=== PATIENT | female | born 1975 | race Caucasian/White ===

== ENCOUNTER 2018-04-16 09:49 | Emergency (ER) | payer BC ==
[2018-04-16 09:59] VITALS: TEMP 98.6; BMI 24.3
[2018-04-16] MEDS ORDERED: ONDANSETRON 4 MG/2 ML VIAL IVPUSH ONE (10:04)
[2018-04-16] MEDS ORDERED: SODIUM CHLORIDE 0.9% 1000 ML INFUS.BAG IV ONE ×2 (10:04→10:51)
[2018-04-16] MEDS ORDERED: ACETAMINOPHEN 1000 MG/100 ML VIAL (NON FORMULARY) IVPB ONE ×2 (10:04→10:51)
[2018-04-16] MEDS ORDERED: ONDANSETRON 4 MG/2 ML VIAL ONE (10:21)
[2018-04-16] MEDS ORDERED: ACETAMINOPHEN INJECTION 100 ML IVPB ONE (10:21)
[2018-04-16] MEDS ORDERED: AZITHROMYCIN 500 MG TABLET PO ONE (10:38)
[2018-04-16 10:41] LABS: BASO % 0.4 % (0-2.0); EOS % 1.1 % (0-4.5); HEMATOCRIT 39.5 % (32.4-45.2); HEMOGLOBIN 13.4 GM/dl (10.7-15.3); LYMPH % 17.5 % (8-40); MCH 31.2 pg (25.7-33.7); MCHC 34.1 g/dl (32.0-36.0); MEAN CELL VOLUME 91.6 fl (80-96); MEAN PLT VOLUME 8.1 fl (7.5-11.1); MONO % 10.7 % (3.8-10.2); NEUT % 70.3 % (42.8-82.8); PLATELET COUNT 215 K/MM3 (134-434); RBC 4.31 M/mm3 (3.60-5.2); RDW 11.9 % (11.6-15.6); WHITE BLOOD COUNT 6.3 K/mm3 (4.0-10.8)
[2018-04-16] MEDS ORDERED: AZITHROMYCIN 250 MG TABLET ONE (10:44)
[2018-04-16 10:46] LABS: ALBUMIN 3.8 g/dl (3.4-5.0); ALK PHOS 52 U/L (45-117); ANION GAP 5 MMOL/L (8-16); BILIRUBIN,TOTAL 0.5 mg/dl (0.2-1); BLOOD UREA NITROGEN 9 mg/dl (7-18); CALCIUM 8.7 mg/dl (8.5-10); CHLORIDE 106 mmol/L (98-107); CO2 26 mmol/L (21-32); CREATININE 0.7 mg/dl (0.55-1.3); GLUCOSE,RANDOM 102 mg/dl (74-106); POTASSIUM 3.7 mmol/L (3.5-5.1); SGOT/AST 20 U/L (15-37); SGPT/ALT 16 U/L (13-61); SODIUM 137 mmol/L (136-145); TOT PROT 6.9 g/dl (6.4-8.2)
--- NOTE | 2018-04-16 10:59 | PDOC ---
History of Present Illness - General Chief Complaint: Diarrhea Stated Complaint: DIARRHEASINCE RETURNING FROM [place] Time Seen by Provider: 04/16/18 10:04 - History of Present Illness Initial Comments: 04/16/18 10:53 42 years old no significant past medical history presents to the emergency department with three-day history of diarrhea. Patient and her recently travel to [place] they're both suffering from diarrheal illness with crampy abdominal pain nausea profuse watery diarrhea no blood no fever. Symptoms are moderate persistent constant with no exacerbating or alleviating factors. Past History - Past Medical History Allergies/Adverse Reactions: Allergies Allergy/AdvReac Type Severity Reaction Status Date / Time No Known Allergies Allergy Unverified 04/16/18 09:51 Home Medications: Ambulatory Orders Ondansetron [Zofran Odt -] 4 mg SL BID #14 od.tablet 04/16/18 COPD: No - Suicide/Smoking/Psychosocial Hx Smoking History: Never smoked Hx Alcohol Use: No Drug/Substance Use Hx: No Review of Systems - Review of Systems Comments:: 04/16/18 10:54 ROS: A complete review of 10 out of 10 review of systems is taken and is negative apart from what is previously mentioned below and in the HPI. *Physical Exam - Vital Signs Last Vital Signs Temp Pulse Resp BP Pulse Ox 98.6 F 88 16 109/78 99 04/16/18 09:51 04/16/18 09:51 04/16/18 09:51 04/16/18 09:51 04/16/18 09:51 - Physical Exam Comments: 04/16/18 10:55 Vitals: Triage Vital signs reviewed General Appearance: no acute distress, well nourished well developed, Head: Atraumatic, Neck: Supple;No Nucal rigidity Chest Wall: Nontender Cardiac: Regular rate and rhythym, no murmurs, no rubs, no gallops, Lungs: Clear to auscultation bilateral, good air movement bilaterally, Abdomen: Soft, non distended, normal bowel sounds, very mild diffuse tenderness to palpation Extremities: Full range of motion to all extremities, no cyanosis, clubbing, or edema Skin: Warm and dry, no rashes or lesions, no rash, no petechiae Psych: normal mood, normal affect Moderate Sedation - Procedure Monitoring Vital Signs: Procedure Monitoring Vital Signs Temperature 98.6 F 04/16/18 09:51 Pulse Rate 88 04/16/18 09:51 Respiratory Rate 16 04/16/18 09:51 Blood Pressure 109/78 04/16/18 09:51 O2 Sat by Pulse Oximetry (%) 99 04/16/18 09:51 ED Treatment Course - LABORATORY CBC & Chemistry Diagram: 04/16/18 10:19 04/16/18 10:19 - Medications Given in the ED: ED Medications Discontinued Medications Generic Name Dose Route Start Last Admin Trade Name Christoph PRN Reason Stop Dose Admin Acetaminophen 1,000 mg 04/16/18 10:04 04/16/18 10:27 Ofirmev Injection - IVPB 04/16/18 10:05 1,000 mg ONCE ONE Administration Azithromycin 1,000 mg 04/16/18 10:38 04/16/18 10:46 Zithromax PO 04/16/18 10:39 1,000 mg ONCE ONE Administration Ondansetron HCl 4 mg 04/16/18 10:04 04/16/18 10:25 Zofran Injection IVPUSH 04/16/18 10:05 4 mg ONCE ONE Administration Sodium Chloride 1,000 ml 04/16/18 10:04 04/16/18 10:19 Normal Saline - IV 04/16/18 10:05 1,000 ml ONCE ONE Administration Medical Decision Making - Medical Decision Making Healthy 42 years old history examination consistent with how his diarrhea we'll treat with single dose azithromycin patient will follow up with her primary care provider within one week she'll return to ED for any severe worsening symptoms or for any concerns. *DC/Admit/Observation/Transfer Diagnosis at time of Disposition: Travelers' diarrhea - Discharge Dispostion Disposition: HOME Decision to Admit order: No - Referrals Referrals: Sharron Polanco [Primary Care Provider] - - Patient Instructions Printed Discharge Instructions: Diarrhea Additional Instructions: Drink plenty of fluids. Zofran as prescribed for nausea. Take a probiotic today and tomorrow. Okay to take one dose of loperamide antidiarrheal medication over- the-counter today. Return to ED for any fever severe worsening abdominal pain diarrhea which last for more than 48 hours or for any concerns otherwise follow- up with her doctor within 1 week. - Post Discharge Activity
[2018-04-16 11:44] VITALS: BP 100/71; PULSE 66
== END 2018-04-16 11:46 | disposition home or self-care (01) ==
LOC: FER 09:49
PROC: 3E033GC Introduction of Other Therapeutic Substance into Peripheral Vein, Percutaneous Approach (ICD-10-PCS; principal; 2018-04-16)
PROC: 3E0337Z Introduction of Electrolytic and Water Balance Substance into Peripheral Vein, Percutaneous Approach (ICD-10-PCS; 2018-04-16)
PROC: 3E033NZ Introduction of Analgesics, Hypnotics, Sedatives into Peripheral Vein, Percutaneous Approach (ICD-10-PCS; 2018-04-16)
DX: A08.8 Other specified intestinal infections (principal)
CPT/HCPCS: 36415; 80053; 85025; 99282-25; J0131; J7030